=== PATIENT | female | born 1970 | race Hispanic/Latino ===

== ENCOUNTER 2021-12-14 07:31 | Day surgery (SDC) | payer BC ==
[2021-12-12 12:06] VITALS: BMI 22.3
[2021-12-14] MEDS ORDERED: Lidocaine 1% MPF 2 ML VIAL ONE (07:58)
[2021-12-14] MEDS ORDERED: PROPOFOL 60 ML ONE (08:50)
[2021-12-14] MEDS ORDERED: Lidocaine 1% PF 5 ML VIAL ONE (08:50)
[2021-12-14] MEDS ORDERED: PHENYLEPHRINE-NS 100 MCG/ML 10 ML SYRINGE ONE (09:39)
[2021-12-14] MEDS ORDERED: PROPOFOL 20 ML ONE (09:41)
== END 2021-12-14 10:33 | disposition home or self-care (01) ==
LOC: CSHSDC 07:31
PROVIDERS: ATTEND Internal Medicine Gastroenterology
PROC: 0DJD8ZZ Inspection of Lower Intestinal Tract, Via Natural or Artificial Opening Endoscopic (ICD-10-PCS; principal; 2021-12-14)
PROC: 0DB68ZZ Excision of Stomach, Via Natural or Artificial Opening Endoscopic (ICD-10-PCS; 2021-12-14)
DX: K29.50 Unspecified chronic gastritis without bleeding (principal); B96.81 Helicobacter pylori [H. pylori] as the cause of diseases classified elsewhere; K31.7 Polyp of stomach and duodenum
CPT/HCPCS: 36416; 88305; 88312; 88342; J2704